=== PATIENT | male | born 1955 | race Two or more races ===

== ENCOUNTER 2019-09-30 14:15 | Outpatient (CLI) | payer OTHER ==
[~2019-09-30 14:15] MED LIST: CARDURA XL4 MG/BOTTL PO; PAXIL10 MG/5 ML PO; PROCARDIA90 MG/BLIS PO; VASOTEC10 MG PO; VISTARIL25 MG PO
== END 2019-09-30 14:20 | disposition home or self-care (01) ==
LOC: LAB 14:15
PROVIDERS: ATTEND Urology
DX: R97.20 Elevated prostate specific antigen [PSA] (principal)

== ENCOUNTER 2019-10-12 07:32 | Outpatient (CLI) | payer OTHER | END 2019-10-12 07:36 | disposition home or self-care (01) | LOC: SONOGRAMA 07:32 | PROVIDERS: ATTEND Urology | DX: R97.20 Elevated prostate specific antigen [PSA] (principal) ==

== ENCOUNTER 2020-04-20 19:01 | Emergency (ER) | payer OTHER ==
[~2020-04-20] VITALS: Ht 180.3 cm; Wt 63.5 kg
== END 2020-04-20 22:58 | disposition home or self-care (01) ==
LOC: ER 19:01
DX: L97.518 Non-pressure chronic ulcer of other part of right foot with other specified severity (principal)

== ENCOUNTER → 2020-08-15 08:18 | Outpatient (CLI) | payer OTHER | END | disposition home or self-care (01) | LOC: NUCLEAR 08:18 | PROVIDERS: ATTEND Urology | DX: C61 Malignant neoplasm of prostate (principal) | CPT/HCPCS: 78803; A9503 ==